=== PATIENT | female | born 1975 | race Caucasian/White ===

== ENCOUNTER → 2017-01-15 | Outpatient (CLI) | payer OTHER ==
[~2017-01-15] MED LIST: ALBUTEROL0.09 MG/A1 IH; ATOMOXETINE; AZMACORT IH; BENADRYL; BUSPAR DIVIDOSE15 MG PO; BUSPIRONE; CEPHALEXIN500 M1 PO; FLEXERIL 1010 MG/TAB PO; LAMICTAL 25MG T25 MG; LAMOTRIGINE; LEVOTHYROXINE PO; LEVOXYL0.1 MG PO; MOTRIN 800800 MG/TAB PO; PREDNISONE20 MG PO; PULMICORT90 MCG/Act IH; ZITHROMAX 250M250 MG PO; ZOLOFT 50MG50 MG PO; [UNRECOGNIZED DRUG - OTHER] IH
== END ==
LOC: COL.RAD 10:15
DX: S83.521A Sprain of posterior cruciate ligament of right knee, initial encounter (principal); S82.091A Other fracture of right patella, initial encounter for closed fracture; M25.461 Effusion, right knee

== ENCOUNTER 2019-04-02 22:33 | Emergency (ER) | payer MEDICAID ==
[~2019-04-02] VITALS: Ht 160 cm; Wt 97.7 kg
[2019-04-02 22:58] VITALS: BP 144/90; PULSE 94; TEMP 97.4
[2019-04-02] MEDS ORDERED: ZESTORETIC 12.51 TA1 PO (23:58)
[2019-04-02] MEDS ORDERED: BUSPAR 30MG30 MG/TAB PO (23:58)
[2019-04-02] MEDS ORDERED: STRATTERA 40MG40 MG PO (23:58)
[2019-04-02] MEDS ORDERED: SYNTHROID 0.10.15 MG PO (23:58)
[2019-04-02] MEDS ORDERED: ZYRTEC ALLERGY10 MG PO (23:59)
[2019-04-02] MEDS ORDERED: MOBIC15 MG PO (23:59)
[2019-04-02] MEDS ORDERED: LAMICTAL150 MG PO (23:59)
[2019-04-03] MEDS ORDERED: PROAIR HFA0.09 MG/AC IH
[2019-04-03] MEDS ORDERED: AMBIEN 5MG TABLE5 MG PO
[2019-04-03] MEDS ORDERED: PROTONIX 40MG T40 MG PO
[2019-04-03] MEDS ORDERED: FLOVENT 110MCG7.9 GM IH (00:01)
[2019-04-03] MEDS ORDERED: AMOXICILLIN 8751 TAB PO (00:49)
== END 2019-04-03 01:33 | disposition home or self-care (01) ==
LOC: COL.ER 22:33
DX: S51.811A Laceration without foreign body of right forearm, initial encounter (principal); S51.831A Puncture wound without foreign body of right forearm, initial encounter; E03.9 Hypothyroidism, unspecified; I10 Essential (primary) hypertension; Z23 Encounter for immunization; W54.0XXA Bitten by dog, initial encounter; Y92.009 Unspecified place in unspecified non-institutional (private) residence as the place of occurrence of the external cause

== ENCOUNTER 2019-04-15 17:26 | Emergency (ER) | payer MEDICAID ==
[~2019-04-15 17:26] MED LIST changes: +AMBIEN 5MG TABLE5 MG PO; +AMOXICILLIN 8751 TAB PO; +BUSPAR 30MG30 MG/TAB PO; +FLOVENT 110MCG7.9 GM IH; +LAMICTAL150 MG PO; +MOBIC15 MG PO; +PROAIR HFA0.09 MG/AC IH; +PROTONIX 40MG T40 MG PO; +STRATTERA 40MG40 MG PO; +SYNTHROID 0.10.15 MG PO; +ZESTORETIC 12.51 TA1 PO; +ZYRTEC ALLERGY10 MG PO
[2019-04-15 17:39] VITALS: BP 119/70; PULSE 94; TEMP 97.4
== END 2019-04-15 17:44 | disposition home or self-care (01) ==
LOC: COL.ER 17:26
DX: S51.811D Laceration without foreign body of right forearm, subsequent encounter (principal); X58.XXXD Exposure to other specified factors, subsequent encounter

== ENCOUNTER → 2022-12-06 | Outpatient (CLI) | payer OTHER | LOC: COL.RAD 12:24 | DX: M17.12 Unilateral primary osteoarthritis, left knee (principal) ==

== ENCOUNTER → 2023-01-09 | Outpatient (CLI) | payer OTHER | LOC: COL.RAD 06:54 | DX: M17.11 Unilateral primary osteoarthritis, right knee (principal); M25.761 Osteophyte, right knee; S83.521A Sprain of posterior cruciate ligament of right knee, initial encounter; X58.XXXA Exposure to other specified factors, initial encounter ==

== ENCOUNTER 2024-06-10 13:53 | Outpatient (RCR) | payer OTHER, MEDICAID ==
[2024-07-22] MEDS ORDERED: CELEBREX 1100 MG/CAP PO (13:59)
[2024-07-22] MEDS ORDERED: TOPAMAX 25MG25 M1 PO (14:00)
[2024-07-22] MEDS ORDERED: EUTHYROX175 MCG PO (14:00)
[2024-07-22] MEDS ORDERED: CYMBALTA 60MG60 MG PO (14:01)
[2024-07-22] MEDS ORDERED: AIRDUO RESPICL1 EAC1 IH (14:03)
[2024-07-22] MEDS ORDERED: NEXIUM 24HR20 M1 PO (14:04)
[2024-07-22] MEDS ORDERED: CALCIUM 600600 MG PO (14:08)
[2024-07-22] MEDS ORDERED: VITAMIN D31000 IU PO (14:09)
[2024-07-22] MEDS ORDERED: NATURAL POTASS595 MG PO (14:10)
[2024-07-22] MEDS ORDERED: NORCO 325 MG-51 TAB PO (14:56)
[2024-07-22] MEDS ORDERED: MOTRIN 600600 MG/TAB PO (14:56)
== END 2024-06-21 ==
LOC: WSPT
DX: M25.561 Pain in right knee (principal); M25.562 Pain in left knee; G89.29 Other chronic pain